=== PATIENT | female | born 1965 | race Two or more races ===

== ENCOUNTER 2023-12-17 09:21 | Day surgery (SDC) | payer OTHER ==
[2023-12-09 11:50] LABS: HEMATOCRIT 35.6 % (36.0-45.00); HEMOGLOBIN 11.7 g/dL (12.0-15.00); MEAN CELL VOLUME 84.5 fL (80.00-100.00); MEAN CORPUSCULAR HEMOGLOBIN 27.9 pg (27.00-32.0); PLATELET COUNT 283 K/uL (150-450); RED BLOOD COUNT 4.21 M/uL (4.00-6.00); RED CELL DISTRIBUTION WIDTH 15.3 % (11.5-14.5)
[2023-12-09 11:53] LABS: PH,URINE 5.5 (5.0-8.0); URINE APPEARANCE Clear; URINE BILIRRUBIN Negative (NEGATIVE); URINE BLOOD Negative; URINE COLOR Yellow; URINE GLUCOSE Negative (NEGATIVE); URINE LEUKOCYTE Negative; URINE NITRATE Negative; URINE PROTEIN Trace (NEGATIVE)
[2023-12-09 11:58] LABS: URINE EPITHELIAL CELLS 61.5 uL (0.0-38.8); URINE RBC 45.6 uL (0.0-20.8); URINE WBC 27.2 uL (0.0-23.2)
[2023-12-09 12:37] LABS: INR < 0.93; PARTIAL THROMBOPLASTIN TIME 25.6 SECONDS (22.0-34.0); PROTHROMBIN TIME 9.8 SECONDS (9.0-11.5)
[2023-12-09 12:46] LABS: ALBUMIN 3.3 gm/dL (3.4-5.0); BILIRUBIN TOTAL 0.2 mg/dL (0.3-1.2); CALCIUM 8.6 mg/dL (8.5-10.1); CREATININE SERUM 0.82 mg/dL (0.55-1.02); GFR 71.6; GLOBULINA 3.2 G/DL (2.4-3.5); POTASSIUM 3.97 mEq/L (3.5-5.1); TOTAL PROTEIN 6.5 gm/dL (6.4-8.2); TSH 1.32 uIU/mL (0.358-3.74)
[2023-12-09 12:59] LABS: URINE YEAST FEW /hpf
[~2023-12-17 09:21] MED LIST: CLONAZEPAM2 MG PO; RESTORIL15 M1 PO; TOPROL XL100 M1
== END 2023-12-17 15:55 | disposition home or self-care (01) ==
LOC: CIR.AMB 09:21
PROVIDERS: ATTEND Colon & Rectal Surgery
DX: R15.9 Full incontinence of feces (principal); Z20.822 Contact with and (suspected) exposure to COVID-19; Z88.6 Allergy status to analgesic agent
CPT/HCPCS: 64581; 95971; C1778

== ENCOUNTER 2023-12-31 08:17 | Day surgery (SDC) | payer OTHER ==
[~2023-12-31 08:17] MED LIST changes: +HYDROCHLOROTHIA25 MG; +LIPITOR20 MG PO; +LISINOPRIL 20 MG; +MOBIC; +TROPOL
[2023-12-31] MEDS ORDERED: METRONIDAZOLE/SODIUM CHLORIDE 500 MG/100 ML PIGGYBACK IV ONE ×2 (12:47→13:45)
[2023-12-31] MEDS ORDERED: CEFTRIAXONE SODIUM 2,000 MG VIAL ONE (12:47)
[2023-12-31] MEDS ORDERED: CEFTRIAXONE SODIUM 2,000 MG VIAL IV ONE (13:45)
[2023-12-31] MEDS ORDERED: BUPIVACAINE HCL 30 ML VIAL IJ ONE (13:45)
[2023-12-31] MEDS ORDERED: LIDOCAINE HCL 1%/Epi 20ML VIAL IJ ONE (13:45)
== END 2023-12-31 16:10 | disposition home or self-care (01) ==
LOC: CIR.AMB 08:17
PROVIDERS: ATTEND Colon & Rectal Surgery
DX: R15.9 Full incontinence of feces (principal); Z88.6 Allergy status to analgesic agent; Z20.822 Contact with and (suspected) exposure to COVID-19
CPT/HCPCS: 64590; 95971; C1767

== ENCOUNTER 2024-01-12 08:24 | Day surgery (SDC) | payer OTHER ==
[2024-01-12] MEDS ORDERED: fentaNYL CITRATE 50 MCG/ML AMPUL IV PUSH ONE (13:15)
[2024-01-12] MEDS ORDERED: ONDANSETRON HCL 2 MG/ML VIAL IV ONE (13:15)
[2024-01-12] MEDS ORDERED: DIPHENHYDRAMINE HCL 50 MG/ML VIAL 1ML IV ONE ×2 (13:15)
[2024-01-12] MEDS ORDERED: MIDAZOLAM HCL 2 MG/2 ML VIAL IV ONE (13:15)
== END 2024-01-12 14:30 | disposition home or self-care (01) ==
LOC: AMB-ENDOS 08:24
PROVIDERS: ATTEND Colon & Rectal Surgery
DX: K57.30 Diverticulosis of large intestine without perforation or abscess without bleeding (principal); R15.9 Full incontinence of feces